=== PATIENT | female | born 1990 | race Caucasian/White ===

== ENCOUNTER 2019-11-16 14:36 | Emergency (ER) | payer BC, SELFPAY ==
--- NOTE | ~2019-11-16 | CT_ITS ---
EXAMINATION: CT abdomen pelvis wo con DATE: 11/16/2019 15:43 INDICATION: Right upper quadrant pain TECHNIQUE: Computed tomography (CT) of the abdomen and pelvis was performed without intravenous contr ast. The dose-length product (DLP) was 500.44 mGy-cm. Automated exposure control and iterative recons truction technique were employed. COMPARISON: None FINDINGS: Minimal dependent atelectasis is present in the lung bases. The heart size is normal. The l iver, spleen, pancreas, gallbladder, and adrenal glands are normal. There is a 3 mm stone in the righ t proximal ureter which causes moderate right hydronephrosis. A 2 mm stone is present in the left kid elle lower pole. No pathologically enlarged abdominal or pelvic lymph nodes are identified. There is n o free intraperitoneal gas or evidence of bowel obstruction. A small amount of free fluid in the pelv is is likely physiologic. The appendix is normal. There is a fat-containing umbilical hernia. IMPRESSION: 1. 3 mm stone in the right proximal ureter causing moderate right hydronephrosis. 2. Nonobstructing left nephrolithiasis. Reviewed, dictated and finalized at location A. IMPRESSION: 1. 3 mm stone in the right proximal ureter causing moderate right hydronephrosi s. 2. Nonobstructing left nephrolithiasis.
--- NOTE | ~2019-11-16 | XR_ITS ---
EXAMINATION: XR abdomen/kub 1V INDICATION: Right flank pain TECHNIQUE: Supine views of the abdomen were obtained on 2 radiographs. COMPARISON: CT from today FINDINGS: A subtle 3 mm calcification projects between the right L2 and L3 transverse processes the e xpected location of the right proximal ureteral stone described on earlier CT. The bowel gas pattern is normal. There are no dilated loops of bowel. IMPRESSION: 1. 3 mm calcification at the expected location of the right proximal ureteral stone described on CT. Reviewed, dictated and finalized at location A. IMPRESSION: 1. 3 mm calcification at the expected location of the right proximal ureteral s tone described on CT.
[2019-11-16 14:50] VITALS: BP 149/89; PULSE 100; RESP 20; TEMP 36.9; O2SAT 100
[2019-11-16] MEDS: SODIUM CHLORIDE 0.9% IV 1,000 ML 999 ML IV CONT ×2 (15:09→16:18)
--- NOTE | 2019-11-16 15:09 | ED.ABDPAIN ---
HPI - Abdominal Pain General Chief Complaint: Abdominal Pain <Loy Rhodes PA-C - Last Filed: 11/16/19 16:32> Stated Complaint: abd pain <REY Rossi Last Filed: 11/16/19 16:32> Time Seen by Provider: 11/16/19 14:51 <REY Rossi Last Filed: 11/16/19 16:32> Source: patient <REY Rossi Last Filed: 11/16/19 16:32> Mode of arrival: ambulatory <REY Rossi Last Filed: 11/16/19 16:32> Limitations: no limitations <REY Rossi Last Filed: 11/16/19 16:32> History of Present Illness HPI narrative: Patient is a 29-year-old female who presents to emergency department for evaluation of right lower abdominal pain with nausea and vomiting that began today and resolved at this point patient notes mild aching discomfort initially in the abdomen that intensified with associated vomiting denies similar occurrence in the past does not take anything for symptoms and on arrival to emergency department notes that the pain is more or less subsided patient denies injury trauma recent illness or other complaints and is otherwise resting comfortably <Loy Rhodes PA-C - Last Filed: 11/16/19 16:32> Related Data Allergies/Adverse Reactions: Allergies Allergy/AdvReac Type Severity Reaction Status Date / Time No Known Allergies Allergy Unverified 11/16/19 15:35 <Loy Rhodes PA-C - Last Filed: 11/16/19 16:32> Review of Systems Review of Systems: All systems reviewed & are unremarkable except as noted in HPI and below <Loy Rhodes PA-C - Last Filed: 11/16/19 16:32> PMFSH Social History Social History: Social History (Updated 11/16/19 @ 15:11 by Loy Rhodes PA-C) Smoking status: Current every day smoker Substance use type: marijuana Gender identity (if verbalized by the patient): Female <REY Rossi Last Filed: 11/16/19 16:32> Exam Narrative: Exam Narrative: GENERAL: Well-appearing, well-nourished, and in no acute distress. HEAD: Normocephalic, atraumatic. EYES: PERRLA and EOMI. ENT: Nares clear, no rhinorrhea or epistaxis. Mucous membranes moist. CHEST: Clear to auscultation. No respiratory distress. No wheezes rales or rhonchi HEART: Regular rate and rhythm. No murmur heard. Normal peripheral pulses. ABDOMEN: Soft, nontender, nondistended EXTREMITIES: Normal range of motion. No edema. SKIN: Warm, dry, no rash. NEURO: No focal deficits. Alert and oriented x3. PSYCH: Normal mood and affect. <Loy Rhodes PA-C - Last Filed: 11/16/19 16:32> Course Course Emergency Course: Patient in the room in no distress aware of case findings treatment plan and diagnosis agreeing to follow-up as directed with urology noting that her symptoms are resolved she is feeling fine in the emergency department given pain medications and fluids in the ER <Loy Rhodes PA-C - Last Filed: 11/16/19 16:32> Vital Signs Vital signs: Vital Signs Temperature 98.5 F 11/16/19 14:50 Pulse Rate 100 11/16/19 14:50 Respiratory Rate 11/16/19 14:50 Blood Pressure 149/89 H 11/16/19 14:50 Pulse Oximetry 100 11/16/19 14:50 Temperature 98.5 F 11/16/19 14:50 Pulse Rate 100 11/16/19 14:50 Respiratory Rate 11/16/19 14:50 Blood Pressure 149/89 H 11/16/19 14:50 Pulse Oximetry 100 11/16/19 14:50 <REY Rossi Last Filed: 11/16/19 16:32> Vital Signs Temperature 98.5 F 11/16/19 14:50 Pulse Rate 100 11/16/19 14:50 Respiratory Rate 11/16/19 14:50 Blood Pressure 149/89 H 11/16/19 14:50 Pulse Oximetry 100 11/16/19 14:50 Temperature 98.5 F 11/16/19 14:50 Pulse Rate 100 11/16/19 14:50 Respiratory Rate 11/16/19 14:50 Blood Pressure 149/89 H 11/16/19 14:50 Pulse Oximetry 100 11/16/19 14:50 <Chey Silva MD - Last Filed: 11/16/19 17:26> MDM - Abdominal Pain MDM Narrative Medical decision making na
[2019-11-16] MEDS: ONDANSETRON INJ 4 MG/2 ML VIAL IV PUSH (15:11)
[2019-11-16] MEDS: FAMOTIDINE 20 MG/2 ML VIAL IV PUSH (15:11)
[2019-11-16 15:14] LABS: Basophils Percent Auto 0.2 % (0.2-1.2); Eosinophils Percent Auto 0.2 % (0-4.4); Hematocrit 39.5 % (37.0-47.0); Hemoglobin 13.5 g/dL (12.0-15.0); Immature Granulocyte Absolute 0.05 K/mm3 (0.00-0.031); Immature Granulocyte Percent A 0.4 % (0-0.5); Lymphocytes Absolute Auto 0.86 K/mm3 (0.9-3.2); Lymphocytes Percent Auto 7.4 % (18.3-44.2); Mean Corpuscular HGB Conc 34.2 g/dl (32-36); Mean Corpuscular Hemoglobin 29.1 pg (26-34); Mean Corpuscular Volume 85.1 fl (80-100); Mean Platelet Volume 9.3 fl (7.4-10.4); Monocytes Absolute Auto 0.6 K/mm3 (0.1-0.6); Monocytes Percent Auto 5.3 % (2.6-8.5); Neutrophils Absolute Auto 10.1 K/mm3 (1.3-6.7); Neutrophils Percent Auto 86.5 % (45.5-73.1); Platelet Count Result 339 k/mm3 (150-375); Red Blood Count 4.64 M/mm3 (4.2-5.4); Red Cell Distribution Width 13.1 % (11.5-14.5); White Blood Count 11.7 K/mm3 (4.5-10.0)
[2019-11-16 15:23] LABS: Add Urine Microscopic? YES; Appearance Urine Cloudy (Clear); Bacteria Urine Trace /hpf; Bilirubin Urine Negative (Negative); Blood Urine 3+ (Negative); Color Urine Yellow (Yellow); Glucose Urine UA Negative (Negative); Ketones Urine Negative (Negative); Leukocyte Esterase Ur Negative LEU/UL (Negative); Mucus Urine Few /lpf; Nitrate Urine Negative (Negative); Protein Urine 2+ mg/dL (Negative); RBC Urine >75 /hpf (0-2); Specific Grav Ur 1.021 (1.001-1.035); Squamous Epithelial Cell Urine Many /hpf (Few); Urobilinogen Urine Negative mg/dL (<2.0)
[2019-11-16 15:26] LABS: Alanine Aminotransferase 27 U/L (4-35); Albumin Level 4.9 g/dL (3.5-5.1); Alkaline Phosphatase 89 U/L (38-126); Aspartate Amino Transferase 32 U/L (14-36); Bilirubin,Total 0.4 mg/dL (0.2-1.3); Blood Urea Nitrogen 13 mg/dL (7-17); Calcium 9.7 mg/dL (8.4-10.2); Carbon Dioxide 24 mmol/L (22-30); Chloride 102 mmol/L (98-107); Estimated CRCL calculation 86 ml/min; Estimated Glomerular Filt Rate > 60; Glucose 113 mg/dL (65-105); Lipase 74 U/L (23-300); Potassium 3.9 mmol/L (3.4-5.0); Sodium 136 mmol/L (137-145)
[2019-11-16 18:01] VITALS: BP 140/80; PULSE 88; RESP 20; O2SAT 100
== END 2019-11-16 18:05 | disposition home or self-care (01) ==
PROVIDERS: Emergency Medicine Emergency Medical Services; Emergency Provider Emergency Medicine
DX: N13.2 Hydronephrosis with renal and ureteral calculous obstruction (principal); F17.200 Nicotine dependence, unspecified, uncomplicated
CPT/HCPCS: 36415; 74018; 74176; 80053; 81001; 81025; 83690; 85025; 87086; 96361; 96365; 96375; 99284; J0131; J2405; J7030

== ENCOUNTER 2021-08-08 09:02 | Outpatient (CLI) | payer BC, SELFPAY ==
--- NOTE | ~2021-08-08 | XR_ITS ---
EXAMINATION: XR chest 2V DATE: 08/08/2021 09:45 INDICATION: Hypercalcemia. Neck mass. TECHNIQUE: Frontal and lateral views of the chest were obtained. COMPARISON: CT abdomen and pelvis 11/16/2019 FINDINGS: There is mild scarring at the lung apices. No pleural effusion or pneumothorax. The heart s ize is normal. IMPRESSION: 1. Mild scarring at the lung apices. Reviewed, dictated and finalized at location A. 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
[2021-08-08 10:00] LABS: Hematocrit 41.9 % (37.0-47.0); Hemoglobin 14.1 g/dL (12.0-15.0); Mean Corpuscular HGB Conc 33.7 g/dl (32-36); Mean Corpuscular Hemoglobin 29.7 pg (26-34); Mean Corpuscular Volume 88.4 fl (80-100); Mean Platelet Volume 9.6 fl (7.4-10.4); Platelet Count Result 351 k/mm3 (150-375); Red Blood Count 4.74 M/mm3 (4.2-5.4); Red Cell Distribution Width 13.3 % (11.5-14.5); White Blood Count 6.1 K/mm3 (4.5-10.0)
[2021-08-08 10:16] LABS: Alanine Aminotransferase 25 U/L (4-35); Albumin Level 4.9 g/dL (3.5-5.1); Alkaline Phosphatase 77 U/L (38-126); Anion Gap 12 mmol/L (8-16); Aspartate Amino Transferase 29 U/L (14-36); Bilirubin,Total 0.7 mg/dL (0.2-1.3); Blood Urea Nitrogen 11 mg/dL (7-17); Calcium 9.4 mg/dL (8.4-10.2); Carbon Dioxide 23 mmol/L (22-30); Chloride 103 mmol/L (98-107); Estimated Glomerular Filt Rate > 60; Glucose 103 mg/dL (65-110); Potassium 4.1 mmol/L (3.4-5.0); Sodium 138 mmol/L (137-145)
[2021-08-08 10:23] LABS: Parathyroid Intact 35.6 pg/mL (7.5-53.5)
== END 2021-08-08 09:03 | disposition home or self-care (01) ==
LOC: ANHLAB 09:08
PROVIDERS: Visit Provider Internal Medicine
DX: E83.52 Hypercalcemia (principal); R22.1 Localized swelling, mass and lump, neck
CPT/HCPCS: 36415; 71046; 80053; 82330; 83970; 84100; 85027

== ENCOUNTER 2021-08-09 09:16 | Outpatient (CLI) | payer BC, SELFPAY ==
[2021-08-09 09:49] LABS: Hematocrit 41.2 % (37.0-47.0); Hemoglobin 13.8 g/dL (12.0-15.0); Mean Corpuscular HGB Conc 33.5 g/dl (32-36); Mean Corpuscular Hemoglobin 29.7 pg (26-34); Mean Corpuscular Volume 88.8 fl (80-100); Mean Platelet Volume 9.5 fl (7.4-10.4); Platelet Count Result 348 k/mm3 (150-375); Red Blood Count 4.64 M/mm3 (4.2-5.4); Red Cell Distribution Width 13.4 % (11.5-14.5); White Blood Count 7.4 K/mm3 (4.5-10.0)
[2021-08-09 10:17] LABS: Alanine Aminotransferase 23 U/L (4-35); Albumin Level 4.7 g/dL (3.5-5.1); Alkaline Phosphatase 71 U/L (38-126); Anion Gap 11 mmol/L (8-16); Aspartate Amino Transferase 29 U/L (14-36); Bilirubin,Total 0.6 mg/dL (0.2-1.3); Blood Urea Nitrogen 11 mg/dL (7-17); Calcium 9.3 mg/dL (8.4-10.2); Carbon Dioxide 25 mmol/L (22-30); Chloride 103 mmol/L (98-107); Estimated Glomerular Filt Rate > 60; Glucose 95 mg/dL (65-110); Phosphorus 3.3 mg/dL (2.5-4.5); Potassium 3.7 mmol/L (3.4-5.0); Sodium 139 mmol/L (137-145)
[2021-08-09 10:27] LABS: Parathyroid Intact 33.5 pg/mL (7.5-53.5)
[2021-08-13 06:04] LABS: Albumin 4.3 g/dL (3.8-4.8); Alpha 1 Globulin 0.3 g/dL (0.2-0.3); Alpha 2 Globulin 0.7 g/dL (0.5-0.9); Beta 1 Globulin 0.6 g/dL (0.4-0.6); Gamma Globulin 1.7 g/dL (0.8-1.7); Protein, Total 8.2 g/dL (6.1-8.1)
== END 2021-08-09 09:17 | disposition home or self-care (01) ==
PROVIDERS: Visit Provider Internal Medicine
DX: E88.09 Other disorders of plasma-protein metabolism, not elsewhere classified (principal)
CPT/HCPCS: 36415; 80053; 82330; 83970; 84100; 84155; 84165; 85027

== ENCOUNTER 2022-11-14 15:28 | Outpatient (CLI) | payer BC, SELFPAY ==
[2022-11-14 20:40] LABS: Beta HCG Quantitative < 2.39 mIU/ML
== END 2022-11-14 15:29 | disposition home or self-care (01) ==
LOC: ANHLAB 15:30
PROVIDERS: Visit Provider Obstetrics & Gynecology
DX: N92.6 Irregular menstruation, unspecified (principal)
CPT/HCPCS: 36415; 84702